=== PATIENT | female | born 1950 | race Hispanic/Latino ===

== ENCOUNTER 2021-04-04 06:03 | Inpatient (IN) | payer MEDICARE ==
[~2021-04-04] VITALS: Ht 157.5 cm; Wt 72.6 kg
[~2021-04-04 06:03] MED LIST: CALCIUM CARBON500 MG PO; COLACE100 MG PO; IBUPROFEN400 MG PO; NORCO 5-325 TA1 EACH PO; OMEPRAZOLE40 MG PO; TYLENOL325 MG PO; VIT D PO
[2021-04-04] MEDS ORDERED: LIDOCAINE HCL 1% LOCAL INJ 20 ML VIAL INJ ONE (06:15)
[2021-04-04] MEDS ORDERED: HYDROCODONE/APAP 5MG-325MG TAB PO STA (06:15)
[2021-04-04] MEDS ORDERED: PANTOPRAZOLE 40 MG 10ML VIAL IV STA (06:18)
[2021-04-04] MEDS ORDERED: ONDANSETRON HCL INJ 2MG/ML 2ML 2 MG/ML VIAL IV STA (06:18)
[2021-04-04] MEDS ORDERED: SODIUM CHLORIDE 0.9% 1000ML 1,000 ML IV STA (06:18)
[2021-04-04 06:30] LABS: BASOPHILS # (AUTO) 0.1 (0.0-0.1); BASOPHILS % 0.3 % (0.0-1.0); EOSINOPHILS % 0.1 % (0.0-6.0); HEMATOCRIT 34.4 % (34.2-44.1); HEMOGLOBIN 11.9 g/dL (12.0-16.0); LYMPHOCYTES # (AUTO) 1.6 (1.0-3.2); LYMPHOCYTES % 8.7 % (18.0-39.1); MEAN CORPUSCULAR HEMOGLOBIN 29.2 pg (28-32); MEAN CORPUSCULAR HGB CONC 34.6 g/dL (31-35); MEAN CORPUSCULAR VOLUME 84.5 fL (81-99); MONOCYTES # (AUTO) 2.2 (0.2-0.8); MONOCYTES % 12.4 % (4.4-11.3); NEUTROPHILS % 77.8 % (38.7-80.0); PLATELET COUNT 286 x10e3/uL (140-360); RED BLOOD COUNT 4.07 x10e6/uL (3.6-5.1); RED CELL DISTRIBUTION WIDTH 13.8 % (11.7-14.4)
[2021-04-04] MEDS ORDERED: IBUPROFEN 800 MG/8 ML VIAL IV ONE (06:30)
[2021-04-04 06:44] LABS: CLARITY,URINE SL CLOUDY (CLEAR); COLOR,URINE YELLOW (YELLOW); KETONES,URINE 1+ (NEGATIVE); LEUKOCYTE ESTERASE ,URINE TRACE (NEGATIVE); NITRITE,URINE NEGATIVE (NEGATIVE); PROTEIN,URINE DIPSTICK 2+ (NEGATIVE)
[2021-04-04 06:45] LABS: URINE UROBILINOGEN 0.2 mg/dL (0.2 - 1)
[2021-04-04] MEDS ORDERED: PIPER-TAZ 3.375 GM 50 ML IV ONE (06:45)
[2021-04-04 06:49] LABS: INR 1.04; PROTHROMBIN TIME 14.2 seconds (11.9-14.5)
[2021-04-04 06:50] LABS: PARTIAL THROMBOPLASTIN TIME 35.8 seconds (23.8-35.5)
[2021-04-04] MEDS ORDERED: SODIUM CHLORIDE 0.9% 50ML 50 ML ONE ×2 (06:52→07:14)
[2021-04-04] MEDS ORDERED: PIPERACILLIN/TAZOBAC 3.375 GM VIAL ONE (06:52)
[2021-04-04 06:54] LABS: ALANINE AMINOTRANSFERASE 17 IU/L (0-55); ALBUMIN 3.2 g/dL (3.5-5.0); ALBUMIN/GLOBULIN RATIO 0.9 (0.8-2.0); ALKALINE PHOSPHATASE 111 IU/L (40-150); ANION GAP 16.1 mmol/L (8-16); BLOOD UREA NITROGEN 15 mg/dL (7-26); BUN/CREATININE RATIO 14 (6-25); CALCIUM 8.6 mg/dL (8.4-10.2); CARBON DIOXIDE 20 mmol/L (22-29); CHLORIDE 100 mmol/L (98-107); CREATINE KINASE 90 IU/L (29-168); CREATININE, SERUM 1.07 mg/dL (0.57-1.11); EST GLOMERULAR FILTRATION RATE 50 ML/MIN (60-); GLUCOSE 125 mg/dL (74-118); LIPASE 8 U/L (8-78); MAGNESIUM 1.7 MG/DL (1.3-2.1); POTASSIUM 3.1 mmol/L (3.5-5.1); SODIUM 133 mmol/L (136-145)
[2021-04-04 07:07] LABS: BACTERIA,URINE MANY /HPF; EPITHELIAL CELLS,URINE MANY /LPF; RBC,URINE 0-5 /HPF (0-5); TRANSITIONAL EPI CELLS,URINE FEW
[2021-04-04] MEDS ORDERED: IOPAMIDOL 370 MG/ML 200 ML INFUS..BTL INJ ONE (07:13)
[2021-04-04] MEDS ORDERED: KCL 20MEQ/.9 SOD CHL 1,000 ML IV ONE (07:15)
[2021-04-04] MEDS ORDERED: FAMOTIDINE 20 MG/2 ML VIAL IV STA (07:36)
[2021-04-04] MEDS ORDERED: METHYLPREDNISOLONE SOD SUCC 125 MG/2ML VIAL IV STA (07:36)
[2021-04-04] MEDS ORDERED: DIPHENHYDRAMINE HCL INJ 50 MG/ML VIAL IV ONE (07:45)
[2021-04-04] MEDS ORDERED: ONDANSETRON HCL INJ 2MG/ML 2ML 2 MG/ML VIAL IV PRN (09:30)
[2021-04-04] MEDS ORDERED: MORPHINE SULFATE INJ 4 MG/ML INJ 1ML IV PRN (10:15)
[2021-04-04] MEDS: CEFEPIME 2 GM/NS 0.9% 100 ML 100 ML IV SCH ×2 (10:56→20:35)
[2021-04-04] MEDS: SODIUM CHLORIDE 0.9% 1000ML 1,000 ML IV SCH ×2 (10:56→12:52)
[2021-04-04 11:36] LABS: OCCULT BLOOD STOOL POSITIVE (NEGATIVE); WBC,FECAL (FECAL LACTOFERRIN) POSITIVE (NEGATIVE)
[2021-04-04] MEDS ORDERED: METRONIDAZOLE 500MG/NS 100ML IV SCH (12:00)
[2021-04-04 12:15] VITALS: BP 117/51
[2021-04-04 12:30] VITALS: BP 117/51
[2021-04-04 12:30] LABS: C DIFFICILE TOXIN A&B AMP PROB NEGATIVE (NEGATIVE)
[2021-04-04] MEDS: METRONIDAZOLE 500MG/NS 100ML 100 ML IV SCH ×2 (12:52→17:39)
[2021-04-04 15:59] VITALS: BP 106/54
[2021-04-04 20:17] VITALS: BP 113/58
[2021-04-04 21:59] VITALS: BP 113/58
[2021-04-05] VITALS (8 sets, daily range): BP systolic 99–116; BP diastolic 47–61
[2021-04-05] MEDS: METRONIDAZOLE 500MG/NS 100ML 100 ML IV SCH ×5 (00:38→23:21)
[2021-04-05] MEDS: SODIUM CHLORIDE 0.9% 1000ML 1,000 ML IV SCH ×3 (00:38→17:12)
[2021-04-05 05:53] LABS: BASOPHILS % 0.2 % (0.0-1.0); HEMATOCRIT 30.4 % (34.2-44.1); HEMOGLOBIN 10.1 g/dL (12.0-16.0); LYMPHOCYTES # (AUTO) 1.2 (1.0-3.2); LYMPHOCYTES % 7.7 % (18.0-39.1); MEAN CORPUSCULAR HEMOGLOBIN 28.7 pg (28-32); MEAN CORPUSCULAR HGB CONC 33.2 g/dL (31-35); MEAN CORPUSCULAR VOLUME 86.4 fL (81-99); MONOCYTES # (AUTO) 0.7 (0.2-0.8); MONOCYTES % 4.1 % (4.4-11.3); NEUTROPHILS # (AUTO) 13.8 (2.1-6.9); NEUTROPHILS % 87.1 % (38.7-80.0); PLATELET COUNT 292 x10e3/uL (140-360); RED BLOOD COUNT 3.52 x10e6/uL (3.6-5.1); RED CELL DISTRIBUTION WIDTH 14.4 % (11.7-14.4)
[2021-04-05 06:18] LABS: ALANINE AMINOTRANSFERASE 14 IU/L (0-55); ALBUMIN 2.7 g/dL (3.5-5.0); ALBUMIN/GLOBULIN RATIO 0.9 (0.8-2.0); ALKALINE PHOSPHATASE 84 IU/L (40-150); ANION GAP 12.3 mmol/L (8-16); BLOOD UREA NITROGEN 12 mg/dL (7-26); BUN/CREATININE RATIO 14 (6-25); CALCIUM 8.1 mg/dL (8.4-10.2); CARBON DIOXIDE 20 mmol/L (22-29); CHLORIDE 112 mmol/L (98-107); CREATININE, SERUM 0.83 mg/dL (0.57-1.11); EST GLOMERULAR FILTRATION RATE > 60 ML/MIN (60-); GLUCOSE 167 mg/dL (74-118); POTASSIUM 3.3 mmol/L (3.5-5.1); SODIUM 141 mmol/L (136-145)
[2021-04-05] MEDS ORDERED: ACETAMINOPHEN 325 MG TAB PO PRN (06:45)
[2021-04-05] MEDS ORDERED: LOPERAMIDE HCL 2 MG CAP PO PRN (07:00)
[2021-04-05] MEDS: PANTOPRAZOLE 40 MG 10ML VIAL IV SCH ×2 (08:52→17:12)
[2021-04-05] MEDS: CEFEPIME 2 GM/NS 0.9% 100 ML 100 ML IV SCH ×2 (08:52→20:54)
[2021-04-05] MEDS: DIPHENHYDRAMINE HCL 25 MG CAP PO PRN ×2 (12:06→23:20)
[2021-04-06] VITALS (8 sets, daily range): BP systolic 102–119; BP diastolic 52–56
[2021-04-06] MEDS: SODIUM CHLORIDE 0.9% 1000ML 1,000 ML IV SCH ×3 (03:12→21:14)
[2021-04-06] MEDS: METRONIDAZOLE 500MG/NS 100ML 100 ML IV SCH ×4 (05:22→22:56)
[2021-04-06 05:59] LABS: BASOPHILS % 0.2 % (0.0-1.0); EOSINOPHILS % 0.1 % (0.0-6.0); HEMATOCRIT 28.9 % (34.2-44.1); HEMOGLOBIN 9.7 g/dL (12.0-16.0); LYMPHOCYTES # (AUTO) 2.9 (1.0-3.2); LYMPHOCYTES % 17.1 % (18.0-39.1); MEAN CORPUSCULAR HEMOGLOBIN 28.8 pg (28-32); MEAN CORPUSCULAR HGB CONC 33.6 g/dL (31-35); MEAN CORPUSCULAR VOLUME 85.8 fL (81-99); MONOCYTES # (AUTO) 0.8 (0.2-0.8); MONOCYTES % 4.8 % (4.4-11.3); NEUTROPHILS # (AUTO) 12.9 (2.1-6.9); NEUTROPHILS % 76.4 % (38.7-80.0); PLATELET COUNT 303 x10e3/uL (140-360); RED BLOOD COUNT 3.37 x10e6/uL (3.6-5.1); RED CELL DISTRIBUTION WIDTH 14.8 % (11.7-14.4)
[2021-04-06 06:17] LABS: % IRON SATURATION 43 % (15-50); IRON 89 ug/dL (50-170); TOTAL IRON BINDING CAPACITY 207 ug/dL (261-478); TRANSFERRIN 148 mg/dL (180-382)
[2021-04-06] MEDS: PANTOPRAZOLE 40 MG 10ML VIAL IV SCH ×2 (08:13→16:22)
[2021-04-06] MEDS: CEFEPIME 2 GM/NS 0.9% 100 ML 100 ML IV SCH ×2 (08:15→20:23)
[2021-04-06] MEDS: DIPHENHYDRAMINE HCL 25 MG CAP PO PRN (13:23)
[2021-04-07] VITALS: BP 118/53
[2021-04-07] MEDS: SODIUM CHLORIDE 0.9% 1000ML 1,000 ML IV SCH ×2 (02:20→11:46)
[2021-04-07 04:00] VITALS: BP 104/52
[2021-04-07] MEDS: METRONIDAZOLE 500MG/NS 100ML 100 ML IV SCH ×2 (05:27→11:58)
[2021-04-07 08:00] VITALS: BP 123/64
[2021-04-07 08:27] VITALS: BP 123/64
[2021-04-07] MEDS: PANTOPRAZOLE 40 MG 10ML VIAL IV SCH ×2 (08:27→17:03)
[2021-04-07] MEDS: CEFEPIME 2 GM/NS 0.9% 100 ML 100 ML IV SCH (08:27)
[2021-04-07] MEDS ORDERED: PANTOPRAZOLE SO40 MG PO (08:47)
[2021-04-07] MEDS ORDERED: FLAGYL500 MG PO (08:47)
[2021-04-07] MEDS ORDERED: IMODIUM2 MG PO (08:47)
[2021-04-07] MEDS ORDERED: KEFLEX125 MG/5 M PO (08:47)
[2021-04-07 09:19] LABS: BASOPHILS # (AUTO) 0.1 (0.0-0.1); BASOPHILS % 0.4 % (0.0-1.0); EOSINOPHILS # (AUTO) 0.2 (0.0-0.4); EOSINOPHILS % 1.1 % (0.0-6.0); HEMATOCRIT 32.1 % (34.2-44.1); HEMOGLOBIN 10.7 g/dL (12.0-16.0); LYMPHOCYTES # (AUTO) 3.5 (1.0-3.2); LYMPHOCYTES % 24.8 % (18.0-39.1); MEAN CORPUSCULAR HEMOGLOBIN 28.8 pg (28-32); MEAN CORPUSCULAR HGB CONC 33.3 g/dL (31-35); MEAN CORPUSCULAR VOLUME 86.3 fL (81-99); MONOCYTES # (AUTO) 0.9 (0.2-0.8); MONOCYTES % 6.5 % (4.4-11.3); NEUTROPHILS # (AUTO) 9.1 (2.1-6.9); NEUTROPHILS % 64.6 % (38.7-80.0); PLATELET COUNT 362 x10e3/uL (140-360); RED BLOOD COUNT 3.72 x10e6/uL (3.6-5.1); RED CELL DISTRIBUTION WIDTH 14.8 % (11.7-14.4)
[2021-04-07 09:34] LABS: ANION GAP 10.3 mmol/L (8-16); BLOOD UREA NITROGEN 11 mg/dL (7-26); BUN/CREATININE RATIO 13 (6-25); CALCIUM 8.4 mg/dL (8.4-10.2); CARBON DIOXIDE 22 mmol/L (22-29); CHLORIDE 111 mmol/L (98-107); CREATININE, SERUM 0.85 mg/dL (0.57-1.11); EST GLOMERULAR FILTRATION RATE > 60 ML/MIN (60-); GLUCOSE 98 mg/dL (74-118); POTASSIUM 3.3 mmol/L (3.5-5.1); SODIUM 140 mmol/L (136-145)
[2021-04-07 11:40] VITALS: BP 134/54
[2021-04-07] MEDS ORDERED: PROPOFOL IV EMULSION 10 MG/ML 20 ML VIAL ONE (13:49)
[2021-04-07 16:23] VITALS: BP 115/57
[2021-04-07] MEDS ORDERED: HEPARIN SOD (PORCINE) 1000 UNIT/ML SDV IV ONE (17:55)
== END 2021-04-07 17:56 | disposition home or self-care (01) | DRG 871 ==
LOC: ER 06:09 → ERHOLD 09:28 → MED/SURG3 12:05
PROVIDERS: ADMIT Internal Medicine; ATTEND Internal Medicine
PROC: 0DB68ZX Excision of Stomach, Via Natural or Artificial Opening Endoscopic, Diagnostic (ICD-10-PCS; principal; 2021-04-07 15:30)
DX: A41.9 Sepsis, unspecified organism (principal); K29.71 Gastritis, unspecified, with bleeding; N17.9 Acute kidney failure, unspecified; N39.0 Urinary tract infection, site not specified; A09 Infectious gastroenteritis and colitis, unspecified; E87.6 Hypokalemia; K21.9 Gastro-esophageal reflux disease without esophagitis; K44.9 Diaphragmatic hernia without obstruction or gangrene; K20.90 Esophagitis, unspecified without bleeding; Z72.89 Other problems related to lifestyle; D64.9 Anemia, unspecified; B96.20 Unspecified Escherichia coli [E. coli] as the cause of diseases classified elsewhere
CPT/HCPCS: 36415; 43239; 74177; 78278; 80048; 80053; 81001; 82270; 82550; 82553; 82607; 82746; 82948; 83540; 83605; 83630; 83690; 83735; 84466; 84484; 85025; 85045; 85610; 85730; 87040; 87086; 87177; 87186; 87328; 87493; 88305; 88312; 93005; 99284; A9512; J1200; J1644; J2405; J2543; J2930; J7030; Q9967; U0002

== ENCOUNTER 2023-01-01 20:16 | Emergency (ER) | payer MEDICARE ==
[~2023-01-01] VITALS: Ht 157.5 cm; Wt 72.6 kg
[~2023-01-01 20:16] MED LIST changes: +FLAGYL500 MG PO; +IMODIUM2 MG PO; +KEFLEX125 MG/5 M PO; +PANTOPRAZOLE SO40 MG PO
[2023-01-01] MEDS ORDERED: DONNATAL/LIDOCAINE/MAALOX 30 ML SUSP PO STA (20:29)
[2023-01-01] MEDS ORDERED: ONDANSETRON HCL INJ 2MG/ML 2ML 2 MG/ML VIAL IV STA (20:29)
[2023-01-01 20:43] LABS: BASOPHILS # (AUTO) 0.1 (0.0-0.1); BASOPHILS % 0.6 % (0.0-1.0); EOSINOPHILS # (AUTO) 0.3 (0.0-0.4); HEMATOCRIT 33.4 % (34.2-44.1); HEMOGLOBIN 11.1 g/dL (12.0-16.0); LYMPHOCYTES % 31.9 % (18.0-39.1); MEAN CORPUSCULAR HEMOGLOBIN 29.4 pg (28-32); MEAN CORPUSCULAR HGB CONC 33.2 g/dL (31-35); MEAN CORPUSCULAR VOLUME 88.6 fL (81-99); MONOCYTES # (AUTO) 0.7 (0.2-0.8); MONOCYTES % 5.5 % (4.4-11.3); NEUTROPHILS # (AUTO) 7.5 (2.1-6.9); NEUTROPHILS % 59.5 % (38.7-80.0); PLATELET COUNT 307 x10e3/uL (140-360); RED BLOOD COUNT 3.77 x10e6/uL (3.6-5.1); RED CELL DISTRIBUTION WIDTH 13.2 % (11.7-14.4)
[2023-01-01] MEDS ORDERED: ONDANSETRON HCL INJ 2MG/ML 2ML 2 MG/ML VIAL ONE (20:47)
[2023-01-01] MEDS ORDERED: BELLADONNA ALK/PHENOBARBITAL 5 ML UDC ONE (20:47)
[2023-01-01] MEDS ORDERED: LIDOCAINE VISC 2% SOLN 15 ML UDC ONE (20:47)
[2023-01-01] MEDS ORDERED: MAGNESIUM/ALUMINUM/SIMETHICONE 30 ML UDC ONE (20:48)
[2023-01-01 21:14] LABS: ALBUMIN 4.1 g/dL (3.5-5.0); ALBUMIN/GLOBULIN RATIO 1.2 (0.8-2.0); ANION GAP 12.6 mmol/L (8-16); CALCIUM 9.4 mg/dL (8.4-10.2); CREATININE, SERUM 1.17 mg/dL (0.57-1.11); POTASSIUM 3.6 mmol/L (3.5-5.1)
[2023-01-02 02:52] LABS: CREATINE KINASE MB 2.7 ng/mL (0-5.0)
[2023-01-02] MEDS ORDERED: ONDANSETRON ODT4 MG PO (03:33)
[2023-01-02 03:49] VITALS: BP 115/53
== END 2023-01-02 03:51 | disposition home or self-care (01) ==
LOC: ER 20:33
DX: R07.89 Other chest pain (principal); K21.9 Gastro-esophageal reflux disease without esophagitis; R11.2 Nausea with vomiting, unspecified; I10 Essential (primary) hypertension
CPT/HCPCS: 36415; 71045; 80053; 82550; 82553; 83690; 84484; 85025; 93005; 99284; C9113; J2405

== ENCOUNTER 2023-03-11 20:28 | Inpatient (IN) | payer MEDICARE ==
[~2023-03-11] VITALS: Ht 157.5 cm; Wt 72.6 kg
[~2023-03-11 20:28] MED LIST changes: +ONDANSETRON ODT4 MG PO
[2023-03-11] MEDS ORDERED: ONDANSETRON HCL INJ 2MG/ML 2ML 2 MG/ML VIAL IV STA (20:57)
[2023-03-11] MEDS ORDERED: SODIUM CHLORIDE 0.9% 1000ML 1,000 ML IV ONE (21:00)
[2023-03-11 21:21] LABS: BASOPHILS # (AUTO) 0.1 (0.0-0.1); BASOPHILS % 0.4 % (0.0-1.0); EOSINOPHILS # (AUTO) 0.2 (0.0-0.4); EOSINOPHILS % 1.4 % (0.0-6.0); HEMATOCRIT 35.3 % (34.2-44.1); HEMOGLOBIN 11.7 g/dL (12.0-16.0); LYMPHOCYTES # (AUTO) 2.3 (1.0-3.2); LYMPHOCYTES % 19.4 % (18.0-39.1); MEAN CORPUSCULAR HEMOGLOBIN 29.4 pg (28-32); MEAN CORPUSCULAR HGB CONC 33.1 g/dL (31-35); MEAN CORPUSCULAR VOLUME 88.7 fL (81-99); MONOCYTES # (AUTO) 0.7 (0.2-0.8); MONOCYTES % 6.1 % (4.4-11.3); NEUTROPHILS # (AUTO) 8.6 (2.1-6.9); NEUTROPHILS % 72.3 % (38.7-80.0); PLATELET COUNT 334 x10e3/uL (140-360); RED BLOOD COUNT 3.98 x10e6/uL (3.6-5.1); RED CELL DISTRIBUTION WIDTH 13.2 % (11.7-14.4)
[2023-03-11 21:34] LABS: ALANINE AMINOTRANSFERASE 40 IU/L (0-55); ALBUMIN 4.2 g/dL (3.5-5.0); ALBUMIN/GLOBULIN RATIO 1.4 (0.8-2.0); ALKALINE PHOSPHATASE 135 IU/L (40-150); ANION GAP 18.4 mmol/L (8-16); BLOOD UREA NITROGEN 21 mg/dL (7-26); BUN/CREATININE RATIO 16 (6-25); CALCIUM 9.4 mg/dL (8.4-10.2); CARBON DIOXIDE 28 mmol/L (22-29); CHLORIDE 102 mmol/L (98-107); CREATINE KINASE 69 IU/L (29-168); CREATININE, SERUM 1.32 mg/dL (0.57-1.11); GLUCOSE 121 mg/dL (74-118); POTASSIUM 4.4 mmol/L (3.5-5.1); SODIUM 144 mmol/L (136-145)
[2023-03-11 22:24] LABS: CLARITY,URINE CLEAR (CLEAR); COLOR,URINE YELLOW (YELLOW); KETONES,URINE NEGATIVE (NEGATIVE); LEUKOCYTE ESTERASE ,URINE TRACE (NEGATIVE); NITRITE,URINE NEGATIVE (NEGATIVE); PROTEIN,URINE DIPSTICK TRACE (NEGATIVE); URINE UROBILINOGEN 0.2 mg/dL (0.2 - 1)
[2023-03-11 22:30] LABS: BACTERIA,URINE FEW /HPF; EPITHELIAL CELLS,URINE RARE /LPF; RBC,URINE 0-5 /HPF (0-5)
[2023-03-11] MEDS ORDERED: ONDANSETRON HCL INJ 2MG/ML 2ML 2 MG/ML VIAL IV PRN (23:00)
[2023-03-11 23:20] LABS: CHOL/HDL RATIO 3.6 (3.0-3.6)
[2023-03-11] MEDS: SODIUM CHLORIDE 0.9% 1000ML 1,000 ML IV SCH (23:47)
[2023-03-12] VITALS (9 sets, daily range): BP systolic 111–142; BP diastolic 44–63
[2023-03-12] MEDS: Morphine 4mg INJECTION 4 MG/ML INJ IV PRN ×2 (00:20→12:41)
[2023-03-12] MEDS ORDERED: MELOXICAM7.5 MG PO (04:06)
[2023-03-12] MEDS ORDERED: ASPIRIN81 MG PO (04:09)
[2023-03-12] MEDS ORDERED: ATORVASTATIN CA20 MG PO (04:09)
[2023-03-12] MEDS: SODIUM CHLORIDE 0.9% 1000ML 1,000 ML IV SCH ×3 (05:23→20:00)
[2023-03-12 08:45] LABS: BASOPHILS # (AUTO) 0.1 (0.0-0.1); BASOPHILS % 0.7 % (0.0-1.0); EOSINOPHILS # (AUTO) 0.3 (0.0-0.4); EOSINOPHILS % 3.8 % (0.0-6.0); HEMATOCRIT 31.2 % (34.2-44.1); HEMOGLOBIN 10.3 g/dL (12.0-16.0); LYMPHOCYTES # (AUTO) 2.2 (1.0-3.2); MEAN CORPUSCULAR HEMOGLOBIN 29.7 pg (28-32); MEAN CORPUSCULAR VOLUME 89.9 fL (81-99); MONOCYTES # (AUTO) 0.4 (0.2-0.8); MONOCYTES % 4.7 % (4.4-11.3); NEUTROPHILS # (AUTO) 4.5 (2.1-6.9); NEUTROPHILS % 60.7 % (38.7-80.0); PLATELET COUNT 279 x10e3/uL (140-360); RED BLOOD COUNT 3.47 x10e6/uL (3.6-5.1); RED CELL DISTRIBUTION WIDTH 13.1 % (11.7-14.4)
[2023-03-12 09:14] LABS: ALBUMIN 3.1 g/dL (3.5-5.0); ALBUMIN/GLOBULIN RATIO 1.2 (0.8-2.0); ANION GAP 11.3 mmol/L (8-16); CALCIUM 8.3 mg/dL (8.4-10.2); CREATININE, SERUM 1.04 mg/dL (0.57-1.11); POTASSIUM 4.3 mmol/L (3.5-5.1)
[2023-03-12] MEDS ORDERED: DIPHENHYDRAMINE HCL 25 MG CAP PO PRN (10:30)
[2023-03-12] MEDS ORDERED: DIPHENHYDRAMINE HCL INJ 50 MG/ML VIAL IV PRN (11:00)
[2023-03-12] MEDS: ARTIFICIAL TEARS (OPTH) 15 ML BTL OU SCH ×2 (13:03→22:14)
[2023-03-13] VITALS (8 sets, daily range): BP systolic 123–156; BP diastolic 43–95
[2023-03-13] MEDS: SODIUM CHLORIDE 0.9% 1000ML 1,000 ML IV SCH ×4 (01:31→21:29)
[2023-03-13] MEDS: ARTIFICIAL TEARS (OPTH) 15 ML BTL OU SCH ×3 (05:57→21:59)
[2023-03-13 06:24] LABS: ANION GAP 12.9 mmol/L (8-16); CALCIUM 8.7 mg/dL (8.4-10.2); CREATININE, SERUM 1.01 mg/dL (0.57-1.11); POTASSIUM 3.9 mmol/L (3.5-5.1)
[2023-03-13 06:51] LABS: ALBUMIN 3.1 g/dL (3.5-5.0); BILIRUBIN,DIRECT 0.6 mg/dL (0.0-0.5)
[2023-03-13 07:12] LABS: BASOPHILS % 0.5 % (0.0-1.0); EOSINOPHILS # (AUTO) 0.3 (0.0-0.4); EOSINOPHILS % 3.5 % (0.0-6.0); HEMATOCRIT 32.7 % (34.2-44.1); HEMOGLOBIN 10.7 g/dL (12.0-16.0); LYMPHOCYTES # (AUTO) 1.5 (1.0-3.2); LYMPHOCYTES % 18.6 % (18.0-39.1); MEAN CORPUSCULAR HEMOGLOBIN 29.2 pg (28-32); MEAN CORPUSCULAR HGB CONC 32.7 g/dL (31-35); MEAN CORPUSCULAR VOLUME 89.3 fL (81-99); MONOCYTES # (AUTO) 0.5 (0.2-0.8); MONOCYTES % 5.7 % (4.4-11.3); NEUTROPHILS # (AUTO) 5.7 (2.1-6.9); NEUTROPHILS % 71.4 % (38.7-80.0); PLATELET COUNT 256 x10e3/uL (140-360); RED BLOOD COUNT 3.66 x10e6/uL (3.6-5.1); RED CELL DISTRIBUTION WIDTH 12.8 % (11.7-14.4)
[2023-03-13] MEDS: Morphine 4mg INJECTION 4 MG/ML INJ IV PRN (15:48)
[2023-03-13] MEDS ORDERED: NEURONTIN100 MG PO (15:52)
[2023-03-13] MEDS ORDERED: BENICAR20 MG PO (15:52)
[2023-03-13] MEDS ORDERED: FAMOTIDINE20 MG PO (15:52)
[2023-03-13] MEDS ORDERED: OMEPRAZOLE40 MG PO (15:52)
[2023-03-13] MEDS ORDERED: HYDRALAZINE HCL 20 MG/ML VIAL IV PRN (16:45)
[2023-03-14] VITALS (8 sets, daily range): BP systolic 115–159; BP diastolic 48–58
[2023-03-14] MEDS: SODIUM CHLORIDE 0.9% 1000ML 1,000 ML IV SCH (05:05)
[2023-03-14] MEDS: ARTIFICIAL TEARS (OPTH) 15 ML BTL OU SCH ×3 (05:05→21:47)
[2023-03-14 05:57] LABS: BASOPHILS # (AUTO) 0.1 (0.0-0.1); BASOPHILS % 0.8 % (0.0-1.0); EOSINOPHILS # (AUTO) 0.3 (0.0-0.4); EOSINOPHILS % 3.3 % (0.0-6.0); HEMATOCRIT 31.5 % (34.2-44.1); HEMOGLOBIN 10.4 g/dL (12.0-16.0); LYMPHOCYTES # (AUTO) 1.5 (1.0-3.2); LYMPHOCYTES % 18.8 % (18.0-39.1); MEAN CORPUSCULAR HEMOGLOBIN 29.8 pg (28-32); MEAN CORPUSCULAR VOLUME 90.3 fL (81-99); MONOCYTES # (AUTO) 0.5 (0.2-0.8); MONOCYTES % 5.8 % (4.4-11.3); NEUTROPHILS # (AUTO) 5.7 (2.1-6.9); PLATELET COUNT 256 x10e3/uL (140-360); RED BLOOD COUNT 3.49 x10e6/uL (3.6-5.1); RED CELL DISTRIBUTION WIDTH 12.1 % (11.7-14.4)
[2023-03-14 06:17] LABS: ANION GAP 16.8 mmol/L (8-16); CALCIUM 8.8 mg/dL (8.4-10.2); CREATININE, SERUM 0.89 mg/dL (0.57-1.11); POTASSIUM 3.8 mmol/L (3.5-5.1)
[2023-03-14] MEDS: DEXTROSE 5%/0.45% SOD CHL 1,000 ML IV SCH ×3 (06:56→21:47)
[2023-03-14] MEDS ORDERED: DEXTROSE 50% SYRINGE 50 ML IV ONE (07:15)
[2023-03-15 00:05] VITALS: BP 124/58
[2023-03-15 04:00] VITALS: BP 136/73
[2023-03-15] MEDS: ARTIFICIAL TEARS (OPTH) 15 ML BTL OU SCH (05:50)
[2023-03-15] MEDS: DEXTROSE 5%/0.45% SOD CHL 1,000 ML IV SCH (07:08)
[2023-03-15 09:11] VITALS: BP 155/77
[2023-03-15 09:17] VITALS: BP 155/77
[2023-03-15] MEDS ORDERED: ONDANSETRON ODT4 MG PO (10:03)
[2023-03-15] MEDS ORDERED: PANTOPRAZOLE SO40 MG PO (10:03)
== END 2023-03-15 10:45 | disposition home or self-care (01) | DRG 439 ==
LOC: ER 20:35 → ERHOLD 23:02 → MED/SURG3 03-12 03:25
PROVIDERS: ADMIT Internal Medicine; ATTEND Internal Medicine
DX: K85.90 Acute pancreatitis without necrosis or infection, unspecified (principal); N17.9 Acute kidney failure, unspecified; E86.0 Dehydration; I10 Essential (primary) hypertension; K21.9 Gastro-esophageal reflux disease without esophagitis; E78.5 Hyperlipidemia, unspecified; N20.0 Calculus of kidney; K44.9 Diaphragmatic hernia without obstruction or gangrene; Z20.822 Contact with and (suspected) exposure to COVID-19
CPT/HCPCS: 0223U; 36415; 71045; 74176; 74181; 76705; 80048; 80053; 80061; 80076; 81001; 82550; 82553; 82948; 83690; 84484; 85025; 93005; 94799; 99284; J1200; J2270; J2405; J2543; J7030

== ENCOUNTER → 2024-08-15 | Outpatient (REF) | payer MEDICARE ==
[~2024-08-15] MED LIST changes: +ASPIRIN81 MG PO; +ATORVASTATIN CA20 MG PO; +BENICAR20 MG PO; +FAMOTIDINE20 MG PO; +MELOXICAM7.5 MG PO; +NEURONTIN100 MG PO
== END ==
LOC: RAD 11:52
PROVIDERS: ATTEND Internal Medicine
DX: Z01.818 Encounter for other preprocedural examination (principal); R05.9 Cough, unspecified
CPT/HCPCS: 71046; 93005

== ENCOUNTER 2024-09-01 22:00 | Emergency (ER) | payer MEDICARE ==
[~2024-09-01] VITALS: Ht 157.5 cm; Wt 72.6 kg
[2024-09-01 22:03] VITALS: RESP 18; TEMP 97.6
[2024-09-01] MEDS ORDERED: SODIUM CHLORIDE 0.9% 1000ML 1,000 ML IV STA (22:20)
[2024-09-01] MEDS ORDERED: ONDANSETRON HCL INJ 2MG/ML 2ML 2 MG/ML VIAL IV STA (22:20)
[2024-09-01 22:28] LABS: BASOPHILS # (AUTO) 0.1 (0.0-0.1); BASOPHILS % 0.6 % (0.0-1.0); EOSINOPHILS # (AUTO) 0.3 (0.0-0.4); EOSINOPHILS % 3.2 % (0.0-6.0); HEMATOCRIT 35.9 % (34.2-44.1); HEMOGLOBIN 11.6 g/dL (12.0-16.0); LYMPHOCYTES # (AUTO) 3.4 (1.0-3.2); LYMPHOCYTES % 35.5 % (18.0-39.1); MEAN CORPUSCULAR HEMOGLOBIN 30.5 pg (28-32); MEAN CORPUSCULAR HGB CONC 32.3 g/dL (31-35); MEAN CORPUSCULAR VOLUME 94.5 fL (81-99); MONOCYTES # (AUTO) 0.5 (0.2-0.8); MONOCYTES % 5.6 % (4.4-11.3); NEUTROPHILS # (AUTO) 5.2 (2.1-6.9); NEUTROPHILS % 54.9 % (38.7-80.0); PLATELET COUNT 264 x10e3/uL (140-360); RED CELL DISTRIBUTION WIDTH 13.5 % (11.7-14.4); WHITE BLOOD COUNT 9.47 x10e3/uL (4.8-10.8)
[2024-09-01] MEDS: SODIUM CHLORIDE 0.9% 1000ML 1,000 ML IV STA (22:32)
[2024-09-01] MEDS: ONDANSETRON HCL INJ 2MG/ML 2ML 2 MG/ML VIAL IV STA (22:37)
[2024-09-01] MEDS: Morphine 4mg INJECTION 4 MG/ML INJ IV STA (22:43)
[2024-09-01] MEDS: FAMOTIDINE 20 MG/2 ML VIAL IV STA (22:43)
[2024-09-01 23:13] LABS: ALBUMIN 4.1 g/dL (3.5-5.0); ALBUMIN/GLOBULIN RATIO 1.4 (0.8-2.0); ANION GAP 13.8 mmol/L (8-16); BILIRUBIN,TOTAL 0.5 mg/dL (0.2-1.2); CALCIUM 9.9 mg/dL (8.4-10.2); CREATININE, SERUM 1.22 mg/dL (0.57-1.11); POTASSIUM 3.8 mmol/L (3.5-5.1)
[2024-09-01 23:19] LABS: TROPONIN I 0.003 ng/mL (0-0.300)
[2024-09-01] MEDS ORDERED: IOPAMIDOL 370 MG/ML 100 ML INFUS..BTL INJ ONE (23:27)
[2024-09-02 00:56] LABS: BILIRUBIN,URINE NEGATIVE (NEGATIVE); CLARITY,URINE CLEAR (CLEAR); COLOR,URINE YELLOW (YELLOW); GLUCOSE, URINE NEGATIVE (NEGATIVE); KETONES,URINE NEGATIVE (NEGATIVE); LEUKOCYTE ESTERASE ,URINE TRACE (NEGATIVE); NITRITE,URINE NEGATIVE (NEGATIVE); PH,URINE 6 (5 - 7); PROTEIN,URINE DIPSTICK NEGATIVE (NEGATIVE); URINE UROBILINOGEN 0.2 mg/dL (0.2 - 1)
[2024-09-02 01:07] LABS: BACTERIA,URINE FEW /HPF; EPITHELIAL CELLS,URINE FEW /LPF; MUCUS,URINE FEW (RARE); RBC,URINE 0-5 /HPF (0-5); WBC,URINE (MAN) 0-5 /HPF (0-5)
[2024-09-02] MEDS ORDERED: ONDANSETRON ODT4 MG PO (01:42)
[2024-09-02] MEDS ORDERED: PROTONIX20 MG PO (01:42)
[2024-09-02 01:45] VITALS: PULSE 68
[2024-09-02 02:01] VITALS: BP 138/70; O2SAT 100
== END 2024-09-02 01:58 | disposition home or self-care (01) ==
LOC: ER 22:13
DX: R10.13 Epigastric pain (principal); N20.0 Calculus of kidney; K76.0 Fatty (change of) liver, not elsewhere classified; I10 Essential (primary) hypertension; K21.9 Gastro-esophageal reflux disease without esophagitis; K86.9 Disease of pancreas, unspecified; R94.31 Abnormal electrocardiogram [ECG] [EKG]
CPT/HCPCS: 36415; 74177; 80053; 81001; 82550; 83690; 84484; 85025; 93005; 99284; J2270; J2405; J7030; Q9967